=== PATIENT | female | born 1995 | race Two or more races ===

== ENCOUNTER 2022-04-09 20:38 | Inpatient (IN) | payer BC, OTHER ==
[~2022-04-09] VITALS: Ht 162.6 cm; Wt 65.0 kg
[2022-04-09 21:20] LABS: Urine Bacteria FEW /hpf (None Seen); Urine Blood 3+ /uL (Negative); Urine Specific Gravity 1.025 (1.001-1.035); Urine WBC 1 /hpf (0 - 5)
[2022-04-09] MEDS ORDERED: HYDROcodone-ACET 10/325MG TAB PO ONE (21:30)
[2022-04-09 22:34] LABS: Basophils # (auto) 0.1 10 ^3/uL (0-0.2); Basophils % (auto) 0.9 % (0.0-2.0); Eosinophils # (auto) 0.1 10 ^3/uL (0-0.8); Eosinophils % (auto) 0.8 % (0.0-7.0); Hematocrit 33.2 % (36.0-46.0); Hemoglobin 11.8 g/dL (12.2-16.2); Lymphocytes # (auto) 1.9 10 ^3/uL (0.4-5.4); Mean Corpuscular Hemoglobin 30.2 pg (28.0-32.0); Mean Corpuscular Hgb Conc. 35.5 g/dL (32.0-36.0); Mean Corpuscular Volume 85.1 fL (80.0-100.0); Monocytes # (auto) 0.5 10 ^3/uL (0-1.3); Monocytes % (auto) 4.7 % (0.0-12.0); Neutrophils # (auto) 7.5 10 ^3/uL (1.6-8.6); Neutrophils % (auto) 74.6 % (37.0-80.0); Nucleated Red Blood Cells % 0.1 %; Red Cell Distribution Width 14.3 % (11.8-14.3)
[2022-04-09 22:51] LABS: Albumin 3.5 g/dL (3.4-5.0); Calcium 8.7 mg/dL (8.5-10.1); Potassium 3.3 mmol/L (3.5-5.1)
[2022-04-09 22:55] LABS: BUN/Creatinine Ratio 23.2; Bilirubin, Total 0.6 mg/dL (0.2-1.0)
[2022-04-10] MEDS ORDERED: METHOTREXATE SODIUM 25 MG/ML 2ML SDV INJ IV ONE (01:45)
[2022-04-10 03:11] LABS: INR 1.08 (0.9-1.15); Partial Thromboplastin Time 25.5 sec (23.6-33.0)
[2022-04-10] MEDS ORDERED: ACETAMINOPHEN 500 MG TAB PO ONE (03:30)
[2022-04-10] MEDS ORDERED: LORATADINE 10 MG TAB PO PRN (03:30)
[2022-04-10] MEDS ORDERED: MIDAZOLAM HCL 2MG/2ML 2ml VIAL (1mg/ml) ONE (03:41)
[2022-04-10] MEDS ORDERED: fentaNYL CITRATE 100 MCG/2 ML VL ONE (03:41)
[2022-04-10] MEDS ORDERED: METOPROLOL TARTRATE 1MG/1ML-5ML VIAL IV ONE (03:42)
[2022-04-10] MEDS ORDERED: DexAMETHasone SOD PHOS 10MG/1ML VIAL INJ ONE (03:42)
[2022-04-10] MEDS ORDERED: GLYCOPYRROLATE 0.2 MG/ML 1ML VIAL ONE (03:42)
[2022-04-10] MEDS ORDERED: LIDOCAINE HCL 2% TOP JELLY 5ML TOP ONE (03:42)
[2022-04-10] MEDS ORDERED: ONDANSETRON HCL 4 MG/2 ML VIAL ONE (03:42)
[2022-04-10] MEDS ORDERED: ePHEDrine SULFATE 50 MG/ML AMP ONE (03:42)
[2022-04-10] MEDS ORDERED: LACTATED RINGER'S 1,000 ML IV SCH (03:45)
[2022-04-10] MEDS ORDERED: ONDANSETRON HCL 4 MG/2 ML VIAL IV PRN ×2 (03:45→05:15)
[2022-04-10] MEDS ORDERED: HYDROmorphone HCL 2 MG/ML VL/or syr ONE (03:51)
[2022-04-10] MEDS ORDERED: ceFAZolin 1GM/50ML 100 ML IV ONE (03:51)
[2022-04-10] MEDS ORDERED: MEPERIDINE HCL (25 MG/ML) 1ML VIAL ONE (05:00)
[2022-04-10] MEDS: HYDROmorphone HCL 2 MG/ML VL/or syr IV PRN ×4 (05:29→20:20)
[2022-04-10] MEDS: ceFAZolin 1GM/50ML 50 ML IV SCH ×3 (06:00→21:40)
[2022-04-10 06:30] VITALS: BP 112/74
[2022-04-10] MEDS: LACTATED RINGER'S 1,000 ML IV SCH ×2 (12:00→21:40)
[2022-04-10] MEDS ORDERED: BISACODYL 10 MG RECT SUPP PR PRN (12:00)
[2022-04-10] MEDS ORDERED: HYDROcodone-ACET 5/325MG TAB PO PRN (12:00)
[2022-04-10 13:00] VITALS: BP 126/72
[2022-04-10] MEDS ORDERED: PHENYLEPHRINE HCL 10 MG/ML VL IV ONE (14:59)
[2022-04-10 17:00] VITALS: BP 123/77
[2022-04-10 20:07] LABS: Basophils # (auto) 0 10 ^3/uL (0-0.2); Basophils % (auto) 0.4 % (0.0-2.0); Eosinophils # (auto) 0 10 ^3/uL (0-0.8); Eosinophils % (auto) 0.2 % (0.0-7.0); Hematocrit 35.3 % (36.0-46.0); Hemoglobin 11.9 g/dL (12.2-16.2); Lymphocytes # (auto) 2.1 10 ^3/uL (0.4-5.4); Lymphocytes % (auto) 21.8 % (10.0-50.0); Mean Corpuscular Hemoglobin 28.7 pg (28.0-32.0); Mean Corpuscular Hgb Conc. 33.7 g/dL (32.0-36.0); Mean Corpuscular Volume 85.2 fL (80.0-100.0); Monocytes # (auto) 0.9 10 ^3/uL (0-1.3); Monocytes % (auto) 9.6 % (0.0-12.0); Neutrophils # (auto) 6.5 10 ^3/uL (1.6-8.6); Red Blood Cells 4.15 10^6/uL (4.0-5.20); White Blood Cell 9.5 10^3/uL (4.4-10.8)
[2022-04-10] MEDS: DOCUSATE SOD 100 MG CAP PO SCH (21:41)
[2022-04-10 22:00] VITALS: BP 106/69
[2022-04-11] MEDS: HYDROmorphone HCL 2 MG/ML VL/or syr IV PRN ×4 (01:20→23:18)
[2022-04-11 05:00] VITALS: BP 100/62
[2022-04-11] MEDS: ceFAZolin 1GM/50ML 50 ML IV SCH ×3 (06:10→23:02)
[2022-04-11 06:33] LABS: Basophils # (auto) 0 10 ^3/uL (0-0.2); Basophils % (auto) 0.6 % (0.0-2.0); Eosinophils # (auto) 0.1 10 ^3/uL (0-0.8); Eosinophils % (auto) 1.3 % (0.0-7.0); Hematocrit 33.1 % (36.0-46.0); Hemoglobin 11.4 g/dL (12.2-16.2); Lymphocytes # (auto) 2.7 10 ^3/uL (0.4-5.4); Lymphocytes % (auto) 31.7 % (10.0-50.0); Mean Corpuscular Hemoglobin 29.3 pg (28.0-32.0); Mean Corpuscular Hgb Conc. 34.4 g/dL (32.0-36.0); Mean Corpuscular Volume 85.1 fL (80.0-100.0); Monocytes # (auto) 0.9 10 ^3/uL (0-1.3); Monocytes % (auto) 10.4 % (0.0-12.0); Neutrophils # (auto) 4.7 10 ^3/uL (1.6-8.6); Red Blood Cells 3.89 10^6/uL (4.0-5.20); Red Cell Distribution Width 15.1 % (11.8-14.3); White Blood Cell 8.4 10^3/uL (4.4-10.8)
[2022-04-11 09:00] VITALS: BP 117/79
[2022-04-11] MEDS: DOCUSATE SOD 100 MG CAP PO SCH ×2 (09:44→23:02)
[2022-04-11] MEDS: LACTATED RINGER'S 1,000 ML IV SCH (09:44)
[2022-04-11] MEDS ORDERED: KETOROLAC TROMETH 30 MG/ML 1ML VIAL IV ONE (10:00)
[2022-04-11] MEDS ORDERED: DOCU-94 PO (10:49)
[2022-04-11] MEDS ORDERED: ONDA-144 PO (10:49)
[2022-04-11] MEDS ORDERED: IBUP800T27 PO (10:49)
[2022-04-11] MEDS ORDERED: HYDR-4902 PO (10:49)
[2022-04-11] MEDS: SIMETHICONE 80 MG CHEWABLE TABLET PO SCH ×4 (11:12→23:02)
[2022-04-11 13:00] VITALS: BP 106/71
[2022-04-11 16:58] VITALS: BP 116/74
[2022-04-11 22:07] VITALS: BP 105/65
[2022-04-12] MEDS: HYDROmorphone HCL 2 MG/ML VL/or syr IV PRN ×2 (02:57→06:51)
[2022-04-12] MEDS: SIMETHICONE 80 MG CHEWABLE TABLET PO SCH ×3 (06:00→17:53)
[2022-04-12] MEDS: ceFAZolin 1GM/50ML 50 ML IV SCH ×2 (06:00→13:10)
[2022-04-12 06:37] VITALS: BP 104/67
[2022-04-12 09:22] VITALS: BP 104/69
[2022-04-12] MEDS: DOCUSATE SOD 100 MG CAP PO SCH (10:48)
[2022-04-12 12:49] VITALS: BP 113/70
[2022-04-12 17:07] VITALS: BP 111/68
== END 2022-04-12 19:50 | disposition home or self-care (01) | DRG 817 ==
LOC: ER 20:58 → OVERFLOW 04-10 04:41 → UNDODEPER 04-10 05:11 → CENTRAL 04-10 06:00
PROVIDERS: ADMIT Obstetrics & Gynecology; ATTEND Obstetrics & Gynecology
PROC: 0UB60ZZ Excision of Left Fallopian Tube, Open Approach (ICD-10-PCS; 2022-04-10)
PROC: 30233N1 Transfusion of Nonautologous Red Blood Cells into Peripheral Vein, Percutaneous Approach (ICD-10-PCS; 2022-04-10)
PROC: 10T20ZZ Resection of Products of Conception, Ectopic, Open Approach (ICD-10-PCS; principal; 2022-04-10 03:56)
DX: O00.102 Left tubal pregnancy without intrauterine pregnancy (principal); K66.1 Hemoperitoneum; Z3A.01 Less than 8 weeks gestation of pregnancy; Z20.822 Contact with and (suspected) exposure to COVID-19
CPT/HCPCS: 36415; 36430; 76801; 76817; 80053; 81001; 83690; 84702; 85025; 85610; 85730; 86850; 86900; 86901; 86920; 96360; G0378; J0690; J1100; J1885; J2250; J2405

== ENCOUNTER 2024-12-05 14:13 | Emergency (ER) | payer SELFPAY ==
[~2024-12-05] VITALS: Ht 162.6 cm; Wt 57.5 kg
[~2024-12-05 14:13] MED LIST: DOCU-94 PO; HYDR-4902 PO; IBUP-1456 PO; ONDA-144 PO
--- NOTE | 2024-12-05 15:18 | ED.PDOC ---
History of Present Illness HPI Comments 29 y.o female presents to the ED for medical clearance. Patient reports she went to donate plasma today, was told her heart rate was elevated and was referred to the ED. Patient reports the past 2 other times she attempted to donate plasma she was told the same thing but never got medical clearance then. She is asymptomatic at this time, denies medical, surgical history or known allergies. Patient states she does not have a primary care provider. Vital signs were stable on arrival. Time Seen by MD: 15:12 Primary Care Provider: DIA Reviewed Notes: Nurses Notes, Medications, Allergies Allergies: Coded Allergies: NO KNOWN ALLERGIES (Unverified , 05/31/15) Home Meds Active Scripts Ondansetron (Zofran) 4 Mg Tab, 4 MG PO Q4HPRN PRN, #30 TAB Prov:ELINA AGUERO DO 04/11/22 Ibuprofen (Ibuprofen) 800 Mg Tab, 800 MG PO TID PRN for 15 Days, #40 TAB Prov:ELINA AGUERO DO 04/11/22 Hydrocodone-Acetaminophen (Hydrocodone Bitartrate/AC 5-325 mg) 1 Tab Tab, 1 TAB PO Q6HPRN PRN for 7 Days, #28 TAB Prov:ELINA AGUERO DO 04/11/22 Docusate Sodium (Colace) 100 Mg Cap, 1 CAP PO BID, #60 CAP 2 Refills Prov:ELINA AGUERO DO 04/11/22 Information Source: Patient Mode of Arrival: Ambulatory Severity: None Timing: Hours Duration: Since onset Prehospital treatment: None Past Medical History PAST MEDICAL HISTORY: Denies Surgical History: Denies all surgeries [employer] History: No Pertinent [employer] History Family History Family History: Reviewed,noncontributory to illness Social History Smoker: Non-Smoker Alcohol: Occasionally Drugs: Marijuana Lives In: Home Constitutional: denies: chills, diaphoresis, fatigue, fever, malaise, sweats, weakness, others EENTM: denies: blurred vision, double vision, ear bleeding, ear discharge, ear drainage, ear pain, ear ringing, eye pain, eye redness, hearing loss, mouth pain, mouth swelling, nasal discharge, nose bleeding, nose congestion, nose pain, photophobia, tearing, throat pain, throat swelling, voice changes, others Respiratory: denies: cough, hemoptysis, orthopnea, SOB at rest, shortness of breath, SOB with excertion, stridor, wheezing, others Cardiovascular: denies: chest pain, dizzy spells, diaphoresis, Dyspnea on exertion, edema, irregular heart beat, left arm pain, lightheadedness, palpitations, PND, syncope, others Gastrointestinal: denies: abdomen distended, abdominal pain, blood streaked bowels, constipated, diarrhea, dysphagia, difficulty swallowing, hematemesis, melena, nausea, poor appetite, poor fluid intake, rectal bleeding, rectal pain, vomiting, others Genitourinary: denies: abnormal vagina bleeding, burning, dyspareunia, dysuria, flank pain, frequency, hematuria, incontinence, pain, , vagina discharge, urgency, others Neurological: denies: dizziness, fainting, headache, left sided numbness, left sided weakness, numbness, paresthesia, pre-existing deficit, right sided numbness, right sided weakness, seizure, speech problems, tingling, tremors, weakness, others Musculoskeletal: denies: back pain, gout, joint pain, joint swelling, muscle pain, muscle stiffness, neck pain, others Integumetry: denies: bruises, change in color, change in hair/nails, dryness, laceration, lesions, lumps, rash, wounds, others Allergic/Immunocompromised: denies: Difficulty Healing, Frequent Infections, Hives, Itching, others Hematologic/Lymphatic: denies: anemia, blood clots, easy bleeding, easy bruising, swollen glands, others Endocrine: denies: excessive hunger, excessive sweating, excessive thirst, excessive urination, flushing, intolerance to cold, intolerance to heat, unexplained weight gain, unexplained weight loss, others Psychiatric: denies: anxiety, bipolar disorder, depression, hopeless, panic disorder, schizophrenia, sleepless, suicidal, others All Other Systems: Reviewed and Negative Physical Exam General Appearance: No Apparent Distress, Normal HEENT: Normal ENT Inspection, Pharynx Normal, TMs Normal Neck: Full Range of Motion, Non-Tender, Normal, Normal Inspection Respiratory: Chest Non-Tender, Lungs Clear, No Accessory Muscle Use, No Respiratory Distress, Normal Breath Sounds Cardiovascular: No Edema, No JVD, No Murmur, No Gallop, Normal Peripheral Pulses, Regular Rate/Rhythm Breast Exam: Deferred Gastrointestinal: No Organomegaly, Non Tender, No Pulsatile Mass, Normal Bowel Sounds, Soft Genitalia: Deferred Pelvic: Deferred Rectal: Deferred Extremities: No calf tenderness, Normal capillary refill, Normal inspection, Normal range of motion, Non-tender, No pedal edema Musculoskeletal : Apperance: Normal Neurologic: Alert, No Motor Deficits, Normal Affect, Normal Mood, No Sensory Deficits Cerebellar Function: Normal Reflexes: Normal Skin: Dry, Normal Color, Warm Lymphatic: No Adenopathy Was a procedure done? Was a procedure done?: No Differential Dx Considerations may include: Medical clearance, Tachycardia X-Ray, Labs, Meds, VS Comment Patient's vital signs were stable throughout her time of the ED. Advised patient I will most signs were medical clearance. Advised patient that she needs to establish a primary care provider to manage these types of events moving forward. Time of 1ST Reevaluation: 15:35 Reevaluation 1ST: Unchanged Consultation: PCP Patient Education/Counseling: Diagnosis, Treatment, Prognosis Family Education/Counseling: Diagnosis, Treatment, No Family Present Departure 1 Departure Time of Disposition: 15:35 Impression: Primary Impression: Encounter for well adult exam without abnormal findings Disposition: 01 HOME / SELF CARE / HOMELESS Condition: Stable Additional Instructions: Patient has been medically cleared for plasma donation. Discharged With: Self, Friend Critical Care Note Critical Care Time?: No Stability Stability form required: No I personally scribed for CANELO RANGEL PAC ([employer]) on 12/05/24 at 15:18. Electronically submitted by Irish Cast ([facility]). CANELO RANGEL PAC Dec 05, 2024 15:18
[2024-12-05 15:40] VITALS: RESP 16; O2SAT 98
[2024-12-05 16:29] VITALS: BP 118/82; PULSE 95; RESP 17; TEMP 98.2; O2SAT 99
== END 2024-12-05 16:38 | disposition home or self-care (01) ==
LOC: ER 14:13
DX: Z02.89 Encounter for other administrative examinations (principal)